=== PATIENT | male | born 1955 | race African-American/Black ===

== ENCOUNTER 2022-01-02 00:14 | Emergency (ER) | payer OTHER ==
[~2022-01-02] VITALS: Ht 180.3 cm; Wt 87.0 kg
[2022-01-02] MEDS ORDERED: NALOXONE HCL 0.4 MG/ML 1ML VIAL IV PRN (00:30)
[2022-01-02 00:47] LABS: BASOPHILS % 0.8 % (0.0-2.0); EOSINOPHILS % 0.1 % (0.0-5.0); HEMATOCRIT. 36.6 % (42.0-52.0); HEMOGLOBIN. 11.6 g/dL (14.0-18.0); LYMPHOCYTES % 13.1 % (20.0-50.0); MEAN CORPUSCULAR HEMOGLOBIN 28.3 pg (28.0-32.0); MEAN PLATELET VOLUME 8.7 fl (7.4-10.4); MONOCYTES % 6.4 % (2.0-8.0); NEUTROPHILS % 79.6 % (40.0-76.0); PLATELET 252 x1000/uL (130-400); RED BLOOD CELL COUNT 4.11 mill/uL (4.7-6.1); RED CELL DISTRIBUTION WIDTH 12.8 % (11.6-14.6)
[2022-01-02 01:10] LABS: CHLORIDE 112 mEq/L (98-107)
[2022-01-02 01:14] LABS: ETHANOL BLOOD 37 mg/dL
[2022-01-02 01:38] LABS: CLARITY URINE CLEAR (CLEAR); COLOR URINE YELLOW (YELLOW); KETONES URINE TRACE (NEGATIVE); LEUKOCYTE ESTERASE URINE NEGATIVE (NEGATIVE); NITRITE URINE NEGATIVE (NEGATIVE); OCCULT BLOOD URINE TRACE (NEGATIVE); PH URINE 6.5 (4.5-8.0); PROTEIN URINE 1+ (NEGATIVE); SPECIFIC GRAVITY URINE 1.015 (1.005-1.030); UROBILINOGEN URINE 0.2 E.U./dL (0.2-1.0)
[2022-01-02 01:51] LABS: *AMPHETAMINES SCREEN URINE NEGATIVE (NEGATIVE)
[2022-01-02 01:52] LABS: *BENZODIAZEPINES SCREEN URINE NEGATIVE (NEGATIVE); METHADONE URINE SCREEN NEGATIVE (NEGATIVE); OPIATES URINE SCREEN PRESUMTIVE POSITIVE (NEGATIVE); PHENCYCLIDINE URINE SCREEN NEGATIVE (NEGATIVE)
[2022-01-02 01:53] LABS: *BARBITURATES SCREEN URINE NEGATIVE (NEGATIVE); *COCAINE SCREEN URINE PRESUMTIVE POSITIVE (NEGATIVE); CANNABINOID URINE SCREEN NEGATIVE (NEGATIVE)
[2022-01-02] MEDS ORDERED: NALO4SPR BOTHNSTRLS (02:17)
[2022-01-02 02:54] VITALS: BP 131/84
== END 2022-01-02 03:21 | disposition home or self-care (01) ==
LOC: ER 00:14
DX: T40.1X1A Poisoning by heroin, accidental (unintentional), initial encounter (principal); R55 Syncope and collapse; R53.83 Other fatigue; F11.129 Opioid abuse with intoxication, unspecified; F10.10 Alcohol abuse, uncomplicated; Y90.1 Blood alcohol level of 20-39 mg/100 ml; F14.10 Cocaine abuse, uncomplicated; I10 Essential (primary) hypertension; Y92.89 Other specified places as the place of occurrence of the external cause
CPT/HCPCS: 36415; 80053; 80305; 80320; 81003; 85025; 99283; G0480

== ENCOUNTER 2025-02-26 21:07 | Emergency (ER) | payer MEDICARE, MEDICAID ==
[~2025-02-26] VITALS: Ht 177.8 cm; Wt 91.0 kg
[~2025-02-26 21:07] MED LIST: NALO4SPR BOTHNSTRLS
[2025-02-26 21:32] VITALS: O2SAT 100
[2025-02-27 00:58] LABS: CLARITY URINE CLEAR (CLEAR); COLOR URINE YELLOW (YELLOW); GLUCOSE URINE NEGATIVE (NEGATIVE); KETONES URINE NEGATIVE (NEGATIVE); LEUKOCYTE ESTERASE URINE NEGATIVE (NEGATIVE); NITRITE URINE NEGATIVE (NEGATIVE); OCCULT BLOOD URINE 1+ (NEGATIVE); PH URINE 5.5 (4.5-8.0); PROTEIN URINE NEGATIVE (NEGATIVE); SPECIFIC GRAVITY URINE 1.007 (1.005-1.030); UROBILINOGEN URINE 0.2 E.U./dL (0.2-1.0)
[2025-02-27 00:59] LABS: BASOPHILS % 1.3 % (0.0-2.0); EOSINOPHILS % 0.8 % (0.0-5.0); HEMATOCRIT. 40.1 % (42.0-52.0); HEMOGLOBIN. 12.9 g/dL (14.0-18.0); LYMPHOCYTES % 26.7 % (20.0-50.0); MEAN CORPUSCULAR HGB CONC 32.1 g/dL (31.0-37.0); MEAN CORPUSCULAR VOLUME 87.1 fL (80.0-94.0); MEAN PLATELET VOLUME 8.9 fl (7.4-10.4); MONOCYTES % 7.5 % (2.0-8.0); NEUTROPHILS % 63.7 % (40.0-76.0); PLATELET 311 x1000/uL (130-400); WHITE BLOOD COUNT 7.4 x1000/uL (4.5-11.0)
[2025-02-27 01:11] LABS: CHLORIDE 109 mEq/L (98-107); POTASSIUM 3.9 mEq/L (3.5-5.1); SODIUM 144 mEq/L (136-145)
[2025-02-27 01:12] LABS: CARBON DIOXIDE 25 mEq/L (21-32)
[2025-02-27 01:13] LABS: CALCIUM 10.1 mg/dL (8.7-10.4)
[2025-02-27 01:15] LABS: *AMPHETAMINES SCREEN URINE NEGATIVE (NEGATIVE); *BARBITURATES SCREEN URINE NEGATIVE (NEGATIVE); *BENZODIAZEPINES SCREEN URINE NEGATIVE (NEGATIVE); *COCAINE SCREEN URINE NEGATIVE (NEGATIVE); CANNABINOID URINE SCREEN NEGATIVE (NEGATIVE); ECSTASY MDMA SCREEN URINE NEGATIVE (NEGATIVE); METHADONE URINE SCREEN NEGATIVE (NEGATIVE); OPIATES URINE SCREEN NEGATIVE (NEGATIVE); PHENCYCLIDINE URINE SCREEN PRESUMTIVE POSITIVE (NEGATIVE)
[2025-02-27 01:17] LABS: CREATININE 1.3 mg/dL (0.6-1.3)
[2025-02-27 01:18] LABS: ETHANOL BLOOD 148 mg/dL (<10); GLUCOSE 143 mg/dL (70-105); UREA NITROGEN BLOOD 13 mg/dL (9-23)
[2025-02-27 01:19] LABS: ACETAMINOPHEN < 2 ug/mL (10-30)
[2025-02-27] MEDS: OLANZAPINE 10 MG/VIAL IM STA (01:35)
[2025-02-27 02:29] LABS: BACTERIA URINE NONE SEEN; SQUAMOUS EPITHELIAL CELL URINE NONE SEEN /lpf (RARE/1+); WBC URINE 0-2 /hpf (0-2)
[2025-02-27 10:26] VITALS: BP 122/82; PULSE 78; RESP 18; TEMP 36.7; O2SAT 98
== END 2025-02-27 11:19 | disposition home or self-care (01) ==
LOC: ER 21:07
DX: R45.851 Suicidal ideations (principal); R45.1 Restlessness and agitation; F32.A Depression, unspecified; I10 Essential (primary) hypertension; Z20.822 Contact with and (suspected) exposure to COVID-19; Z79.899 Other long term (current) drug therapy
CPT/HCPCS: 36415; 93005; 99285; 80305; 80048; 81003; 80307; 80329; 80320; 85025; 96372; 87426; J3490; G0480